=== PATIENT | female | born 1990 | race Caucasian/White ===

== ENCOUNTER 2019-02-01 05:47 | Day surgery (SDC) | payer OTHER, BC, MEDICAID ==
[2019-02-01] MEDS ORDERED: BUPIVACAINE 0.5%/EPI (SDV) 30 ML INJ (06:44)
[2019-02-01] MEDS: LACTATED RINGER'S 1,000 ML IV (06:59)
[2019-02-01] MEDS: BUPIVACAINE 0.5%/EPI (SDV) 30 ML INJ INJ (07:05)
[2019-02-01] MEDS ORDERED: METOCLOPRAMIDE 10 MG INJ IV (07:30)
[2019-02-01] MEDS ORDERED: DIPHENHYDRAMINE 50 MG INJ IV (07:30)
[2019-02-01] MEDS ORDERED: DESFLURANE 15 MIN (07:30)
[2019-02-01] MEDS ORDERED: ALBUTEROL 0.083% (NEB) 2.5 MG/3 ML AMP HHN (07:30)
[2019-02-01] MEDS ORDERED: FENTAnyl 50 MCG/ML VIAL IV ×2 (07:30)
[2019-02-01] MEDS ORDERED: HYDROmorphONE 1 MG/5 ML IV SYRINGE IV (07:30)
[2019-02-01] MEDS ORDERED: FENTAnyl 50 MCG/ML VIAL (07:31)
[2019-02-01] MEDS ORDERED: ROPIVACAINE 0.5 % 30 ML VIAL (07:31)
[2019-02-01] MEDS ORDERED: SUCCINYLCHOLINE CHLORIDE 100 MG/5 ML SYG IV (07:59)
[2019-02-01] MEDS ORDERED: PROPOFOL 20 ML (07:59)
[2019-02-01] MEDS ORDERED: CEFAZOLIN 1 GM INJ (07:59)
[2019-02-01] MEDS ORDERED: LIDOCAINE 100 MG SYRINGE (07:59)
[2019-02-01] MEDS ORDERED: ROCURONIUM 50 MG INJ (07:59)
[2019-02-01] MEDS ORDERED: SUGAMMADEX SODIUM 200 MG/2 ML VIAL IV (07:59)
[2019-02-01] MEDS: ONDANSETRON 4 MG INJ IV ×2 (08:59→10:01)
[2019-02-01] MEDS: MEPERIDINE 25 MG INJ IV (08:59)
[2019-02-01] MEDS: HYDROmorphONE 1 MG/5 ML IV SYRINGE IV ×2 (09:08→09:16)
== END 2019-02-01 10:30 | disposition home or self-care (01) ==
LOC: SDS 05:47
DX: Z30.2 Encounter for sterilization (principal)
CPT/HCPCS: 58661; 88302